=== PATIENT | female | born 1965 ===

== ENCOUNTER 2022-07-01 08:05 | Outpatient (CLI) | payer BC, SELFPAY ==
--- NOTE | 2022-07-24 18:40 | WPDHOMESLEEP ---
Sleep Study - Home Unattended Date of Study: 07/01/22 Ordering Provider: Aster Nixon NP Interpreting Provider: Silvia Mckee MD [facility] Type: Watch PAT Height: 1.55 m Weight: 74.843 kg Body Mass Index: 31.1 Neck Circumference (inches): 15 [place]: 20 Reason for Sleep Study Hypersomnolence Sleep History Estefanía Morales is a 57-year-old woman with complaints of snoring, restless sleep, excessive daytime sleepiness and grinding her teeth. There is a family history of sleep issues with her sister and father diagnosed with sleep apnea. She rarely awakens from sleep feeling short of breath. She occasionally awakens at night with heartburn, belching or coughing. She always snores very loudly. She occasionally has trouble sleeping with a cold. She rarely wakes up gasping for breath at night. She occasionally has breathing problems at night observed by others. She occasionally sweats excessively at night and occasionally notices her heart pounding or beating irregularly at night. She occasionally falls asleep during the day, rarely falls asleep involuntarily, very rarely falls asleep while driving. She rarely has loss of muscle tone with strong emotion. She occasionally has daytime difficulties due to excessive sleepiness. She occasionally feels paralyzed on waking or falling asleep. She frequently has vivid dreamlike scenes on waking or falling asleep. She generally does not feel afraid to go to sleep. She frequently has nightmares. She frequently remembers her dreams. She constantly has racing thoughts. She occasionally feels sad or depressed. She rarely has anxiety. She constantly has muscular tension. She occasionally notices parts of her body jerking. She rarely kicks at night. She occasionally has crawling and aching feelings in her legs. She frequently has leg pain during the night. She frequently has morning jaw pain and she frequently grinds her teeth during sleep. She frequently is bothered by pain during the day and is awakened by pain at night. She frequently wakes up feeling stiff in the morning with sore achy muscles and pain in the neck and spine. She has memory problems concentration difficulties, fatigue. She takes antacids regularly. Normal bedtime is Between 1:00 a.m. and 2:00 a.m.. She usually falls asleep immediately. She wakes up once at night to go to the bathroom and to soothe her leg cramps. She is able to return to sleep easily. She wakes the morning at 6:45 a.m. On weekends, bedtime is still 1-2 a.m. and she wakes around noon. She does not take naps in the day. She feels better in the evening compared to other times of day. Habits: Never smoked tobacco. No caffeine. Alcohol 1 serving a day. No recreational substances. [facility] Past Medical History Medical History Abnormal fasting glucose (03/24/21) fasting glucose 108 on 03/24/2021 Acute infective gastroenteritis Acute pharyngitis BMI 33.0-33.9,adult BMI 34.0-34.9,adult Breast cancer screening by mammogram Normal mammogram 10/27/2021. Diarrhea Edema, peripheral Elevated blood pressure reading in office without diagnosis of hypertension Encounter for screening colonoscopy Functional diarrhea Gastro-esophageal reflux disease without esophagitis History of COVID-19 (~06/2020) Hypersomnia Laceration of forearm, left Mixed hyperlipidemia (03/24/21) total cholesterol 210, triglycerides 166, HDL 51 and LDL 126 03/24/2021 Obesity (BMI 30.0-34.9) Polycythemia (03/24/21) hemoglobin elevated at 17.2 on 03/24/2021 Snoring Vitamin B12 deficiency anemia (03/24/21) vitamin B12 low at 339 with folic acid 3.68 on 03/24/2021 Yeast vaginitis (03/24/21) Surgical History Surgical History History of carpal tunnel release History of cholecystectomy History of tubal ligation Hx of section Hx of section
[2022-07-24 19:45] VITALS: BMI 31.1
--- NOTE | 2022-09-30 11:29 | SLEEP ---
pt followed up with sleep medicine and is exploring other options
== END 2022-07-07 16:11 | disposition home or self-care (01) ==
PROVIDERS: PCP Family Medicine; Visit Provider Nurse Practitioner Family
DX: G47.10 Hypersomnia, unspecified (principal); D75.1 Secondary polycythemia; G47.33 Obstructive sleep apnea (adult) (pediatric)
CPT/HCPCS: 95800